=== PATIENT | male | born 1950 | race African-American/Black ===

== ENCOUNTER 2018-07-13 17:46 | Emergency (ER) | payer MEDICARE, OTHER ==
[~2018-07-13] VITALS: Ht 182.9 cm; Wt 54.0 kg
--- NOTE | 2018-07-13 17:50 | NUR ---
ED Nurse Note: Pt brought in by [facility] from [facility] c/o sorethroat and neck pain x 4days with cough but denies sob. pt airway intact, resp even and unlabored on RA, -n/v/d, will cont monitor. [facility]r EMS report, gtube removed 2 wks ago and hasn't been eating.
--- NOTE | 2018-07-13 18:20 | NUR ---
ED Nurse Note: verified w/ ERMD regarding pt drinking. pt able to tolerate po fluids well. will cont monitor.
[2018-07-13 18:35] VITALS: BP 130/86
[2018-07-13] MEDS ORDERED: Isovue-300 100ml vial INJ PRN (19:15)
--- NOTE | 2018-07-13 19:15 | NUR ---
ED Nurse Note: pt refused nausea medication, states he doesn't have nausea.
--- NOTE | 2018-07-13 19:30 | NUR ---
ED Nurse Note: pt reports pain, ERMD notified.
[2018-07-13 19:42] LABS: BASOPHILS % (AUTO) 1.2 % (0.0-2.0); EOSINOPHILS % (AUTO) 0.1 % (0.0-3.0); HEMATOCRIT 47.5 % (42.0-52.0); HEMOGLOBIN 14.9 G/DL (14.2-18.0); LYMPHOCYTES % (AUTO) 13.8 % (20.0-45.0); MEAN CORPUSCULAR VOLUME 84 FL (80-99); MONOCYTES % (AUTO) 6.6 % (1.0-10.0); NEUTROPHILS % (AUTO) 78.4 % (45.0-75.0); PLATELET COUNT 246 K/UL (150-450); RED BLOOD COUNT 5.68 M/UL (4.70-6.10); RED CELL DISTRIBUTION WIDTH 13.9 % (11.6-14.8)
[2018-07-13] MEDS ORDERED: traMADol 50mg tab ORAL ONE (19:45)
[2018-07-13 20:06] LABS: ANION GAP 11 mmol/L (5-15); BLOOD UREA NITROGEN 16 mg/dL (7-18); CALCIUM 9.4 MG/DL (8.5-10.1); CARBON DIOXIDE 28 MMOL/L (21-32); CHLORIDE 106 MMOL/L (98-107); POTASSIUM 3.6 MMOL/L (3.5-5.1); SODIUM 145 MMOL/L (136-145)
[2018-07-13 20:11] LABS: ALANINE AMINOTRANSFERASE 19 U/L (12-78); ALBUMIN/GLOBULIN RATIO 0.7 (1.0-2.7); ALKALINE PHOSPHATASE 112 U/L (46-116); ASPARTATE AMINO TRANSFERASE 21 U/L (15-37); BILIRUBIN,TOTAL 0.6 MG/DL (0.2-1.0)
[2018-07-13 20:35] VITALS: BP 129/82
--- NOTE | 2018-07-13 22:38 | NUR ---
ED Nurse Note: pt reports pain, pt states ultram helped but starting to have pain again, ERMD notified.
--- NOTE | 2018-07-13 22:40 | NUR ---
ED Nurse Note: report given to Farhana nurse at the [facility] for d/c instruction and aftercare instruction. nurse verbalized understanding.
[2018-07-13] MEDS ORDERED: RANITIDINE HCL150 MG ORAL (22:56)
[2018-07-13] MEDS ORDERED: Morphine Sulfate 4mg/ml Inj (IV USE ONLY) IVP ONE (23:00)
[2018-07-13 23:13] VITALS: BP 147/98
--- NOTE | 2018-07-13 23:14 | NUR ---
ED Nurse Note: pt cleared to be d/c per ER provider, pt discharge/aftercare instruction provided w/ prescription, pt education done via discussion and handout, pt advised to follow up with pcp or return to ed if sx worsen or new sx develop, pt verbalized understanding and agrees with plan, paperwork given to amb personnel and report given, all belongings left w/ pt, vss, resp even and unlabored on RA, iv d/c and dressing applied, wristband removed.
--- NOTE | 2018-07-13 23:21 | Emergency Room Report ---
History of Present Illness General Chief Complaint: Sore Throat Source: Patient, EMS Present Illness HPI 68-year-old male presents ED complaining of sore throat. Coming from long term facility. Pain is sharp, 7 out of 10, nonradiating. Started 3 days ago. Denies fevers or chills. Denies cough. Denies ear ache. No other aggravating relieving factors. No other associated symptoms Allergies: Coded Allergies: IBUPROFEN (Verified Allergy, Unknown, 07/13/18) PENICILLINS (Verified Allergy, Unknown, 07/13/18) Patient History Past Medical History: HTN Past Surgical History: none Pertinent Family History: none Social History: Denies: smoking, alcohol use, drug use Immunizations: UTD Reviewed Nursing Documentation: PMH: Agreed; PSxH: Agreed Nursing Documentation-PMH Past Medical History: No History, Except For Hx Hypertension: Yes Review of Systems All Other Systems: negative except mentioned in HPI Physical Exam Vital Signs Date Time Temp Pulse Resp B/P (MAP) Pulse Ox O2 Delivery O2 Flow Rate FiO2 07/13/18 17:45 97.9 69 16 133/97 100 Room Air Sp02 EP Interpretation: reviewed, normal General Appearance: no apparent distress, alert, GCS 15, non-toxic Head: normocephalic, atraumatic Eyes: bilateral eye normal inspection, bilateral eye PERRL ENT: hearing grossly normal, normal pharynx, no angioedema, normal voice, TMs + canals normal Neck: full range of motion, supple/symm/no masses Respiratory: chest non-tender, lungs clear, normal breath sounds, speaking full sentences Cardiovascular #1: regular rate, rhythm, no edema Cardiovascular #2: 2+ carotid (R), 2+ carotid (L), 2+ radial (R), 2+ radial (L) , 2+ dorsalis pedis (R), 2+ dorsalis pedis (L) Gastrointestinal: normal bowel sounds, non tender, soft, non-distended, no guarding, no rebound Rectal: deferred Genitourinary: normal inspection, no CVA tenderness Musculoskeletal: back normal, gait/station normal, normal range of motion, non- tender Neurologic: alert, oriented x3, responsive, motor strength/tone normal, sensory intact, speech normal Psychiatric: judgement/insight normal, memory normal, mood/affect normal, no suicidal/homicidal ideation Reflexes: 3+ bicep (R), 3+ bicep (L), 3+ tricep (R), 3+ tricep (L), 3+ knee (R) , 3+ knee (L) Skin: normal color, no rash, warm/dry, well hydrated Lymphatic: no adenopathy Medical Decision Making Diagnostic Impression: Primary Impression: GERD (gastroesophageal reflux disease) Qualified Codes: K21.9 - Gastro-esophageal reflux disease without esophagitis Additional Impression: Throat pain ER Course Hospital Course 68 yo M presents with throat pain Differential diagnosis includes- esphagitis, pharyngits, GERD Clinical course Patient placed on stretcher. After initial history and physical I ordered labs , IV fluids, pain medications and CT scan Labs - no leukocytosis, electrolytes ok, CT neck and CT chest show no acute findings however there are findings consistent with acid reflux. Discussed findings with patient. Patient is asking for surgery. I explained there is no emergent indication for surgery at this time. We will discharge back to SNF with CT findings. given pepcid here I feel this is a highly complex case requiring extensive working including EKG/ Rhythm strip, Xray/CT/US, Blood/urine lab work, repeat exams while in ED, and administration of strong opiates/narcotics for pain control, admission to hospital or close patient follow up. Diagnosis - GERD, throat pain Stable and discharged to SNF with Rx Zantac. Followup with PMD. Return to ED if symptoms recur or worsen Labs Test 07/13/18 19:20 White Blood Count 7.0 K/UL (4.8-10.8) Red Blood Count 5.68 M/UL (4.70-6.10) Hemoglobin 14.9 G/DL (14.2-18.0) Hematocrit 47.5 % (42.0-52.0) Mean Corpuscular Volume 84 FL (80-99) Mean Corpuscular Hemoglobin 26.2 PG (27.0-31.0) Mean Corpuscular Hemoglobin Concent 31.3 G/DL (32.0-36.0) Red Cell Distribution Width 13.9 % (11.6-14.8) Platelet Count 246 K/UL (150-450) Mean Platelet Volume 5.5 FL (6.5-10.1) Neutrophils (%) (Auto) 78.4 % (45.0-75.0) Lymphocytes (%) (Auto) 13.8 % (20.0-45.0) Monocytes (%) (Auto) 6.6 % (1.0-10.0) Eosinophils (%) (Auto) 0.1 % (0.0-3.0) Basophils (%) (Auto) 1.2 % (0.0-2.0) Sodium Level 145 MMOL/L (136-145) Potassium Level 3.6 MMOL/L (3.5-5.1) Chloride Level 106 MMOL/L (98-107) Carbon Dioxide Level 28 MMOL/L (21-32) Anion Gap 11 mmol/L (5-15) Blood Urea Nitrogen 16 mg/dL (7-18) Creatinine 1.0 MG/DL (0.55-1.30) Estimat Glomerular Filtration Rate > 60 mL/min (>60) Glucose Level 85 MG/DL (74-106) Calcium Level 9.4 MG/DL (8.5-10.1) Total Bilirubin 0.6 MG/DL (0.2-1.0) Aspartate Amino Transf (AST/SGOT) 21 U/L (15-37) Alanine Aminotransferase (ALT/SGPT) 19 U/L (12-78) Alkaline Phosphatase 112 U/L (46-116) Total Protein 7.5 G/DL (6.4-8.2) Albumin 3.0 G/DL (3.4-5.0) Globulin 4.5 g/dL Albumin/Globulin Ratio 0.7 (1.0-2.7) CT/MRI/US Diagnostic Results CT/MRI/US Diagnostic Results #1: Imaging Test Ordered: CT chest Impression No pulmonary embolism. No aortic aneurysm or dissection. Aorta is tortuous. Near occlusive debris/secretions in the bronchial of right lower lobe, best seen on series 9 images 26-34, indicating aspiration. 4 mm groundglass opacity of left lower lobe, series 9 image 23. Subtle patchy groundglass airspace opacities predominantly in right middle lobe and lower lobe, best seen on sagittal view, may suggest early pneumonia. The esophagus is mildly dilated, fluid-filled, all the way up to thoracic inlet , suggest severe reflux. Rib spur arising from inner posterior aspect of right fifth rib. Calcified right hilar and mediastinal lymph nodes. Bilateral renal cysts. Moderate degenerative disc disease. Osteopenia. Small scarring of bilateral lung bases. CT/MRI/US Diagnostic Results #2: Imaging Test Ordered: CT neck Impression Findings: air-fluid level noted in the esophagus down to the level of the surgical anastomoses. Degenerative changes noted of the cervical spine There is a sebaceous cyst measuring 2.9 x 1.8 cm posterior neck at the level C 3 -4. No evidence for enlargement tonsillar pillars. Unremarkable appearance to the left and right parotid gland. Left and right submandibular gland are within normal limits. Impression: air-fluid level in the esophagus down to the level of the surgical anastomosis.. Findings consistent with a sebaceous cyst posteriorly in the neck. Mild degenerative changes the cervical spine. Last Vital Signs Date Time Temp Pulse Resp B/P (MAP) Pulse Ox O2 Delivery O2 Flow Rate FiO2 07/13/18 23:13 98.4 88 16 147/98 95 Room Air Status: improved Disposition: ER SNF Condition: Stable Scripts Ranitidine Hcl* (ZANTAC*) 150 Mg Tablet 150 MG ORAL TWICE A DAY, #30 TAB Prov: Lawrence Galindo MD 07/13/18 Referrals: NON PHYSICIAN (PCP) Patient Instructions: Gastroesophageal Reflux Disease, Adult Lawrence Galindo MD Jul 13, 2018 23:21
--- NOTE | 2018-07-14 10:51 | Diagnostic Imaging Report ---
Clinical Indication: Chest pain, dysphagia Technique: IV administration nonionic contrast. Spiral acquisition obtained through the chest. Multiplanar reconstructions generated. Total dose length product 1321 mGycm. CTDIvol(s) 17, 20 mGy. Dose reduction achieved using automated exposure control Comparison: none Findings: There is generalized hyperinflation, as well as at or bullae. A focal calcification is seen posteriorly in the right upper pleural space, probably arising from the adjacent rib. A granulomatous calcification is seen in the posterior right upper lobe. Some atelectasis is seen in the posterior left upper lobe. Faint groundglass opacities are seen in the right middle and lower lobe. Areas of atelectasis and/or scarring are seen at both lung bases. No definite infiltrates, masses, effusions demonstrated. The exam was not protocoled for evaluation of pulmonary embolus, but the pulmonary arteries are well opacified and no evidence of pulmonary embolism is demonstrated. The esophagus is filled with fluid and debris, mildly distended. There is evidence of fairly extensive postsurgical changes of the stomach and proximal small bowel, incompletely included and not well visualized. Some secretions are seen in the right lower lobe lateral segmental bronchus. The left hemidiaphragm is elevated. The aorta is markedly tortuous. The heart size is normal. There is evidence of left ventricular muscular hypertrophy. The ascending thoracic aorta is ectatic but not frankly aneurysmal, measuring 4 cm in diameter. No mediastinal or hilar mass or adenopathy. Included portions of the thyroid are unremarkable. Granulomatous calcifications are seen and multiple mediastinal lymph nodes and a right hilar node. No axillary or chest wall mass or adenopathy demonstrated. The bones demonstrate degenerative spondylosis changes. The included abdominal viscera demonstrate elevated left hemidiaphragm. As mentioned above, the gastroesophageal anatomy is not well delineated. Granulomatous calcifications are seen within the spleen. The liver demonstrates numerous subcentimeter low-attenuation lesions which are too small to characterize. The left kidney demonstrates a large cyst coming off of the upper pole and a second smaller cyst coming off of the anterior interpolar region. A small cyst is also seen in the right kidney. Subcentimeter low-attenuation lesions are also seen in the right kidney. Impression: Fluid-filled esophagus, extending to the gastroesophageal junction findings could be on the basis of distal esophageal obstructive lesion versus severe reflux. Note that the gastroesophageal anatomy is poorly delineated although there is evidence of prior gastric and proximal small bowel surgery. Correlate with surgical history, consider endoscopy and/or esophagitis., consider follow-up with abdomen CT with oral contrast if clinically indicated Evidence of COPD, with hyperinflation and bullous changes Groundglass opacities within the right middle and lower lobes, could represent pulmonary edema or early inflammatory change Evidence old granulomatous disease within the right lung and pulmonary hilum and spleen Tortuous ectatic but not frankly aneurysmal aorta Minimal secretions within right lower lobe lateral segmental bronchus Other findings as noted, including bilateral renal cysts, subcentimeter low-attenuation liver lesions which are too small to characterize-most likely simple cysts or bile hammertoe is and no further follow-up necessary, degenerative spondylosis changes This agrees with the preliminary interpretation provided overnight by [facility], with minor variation. The CT scanner at [facility] is accredited by the [employer] and the scans are performed using protocols designed to limit radiation exposure to as low as reasonably achievable to attain images of sufficient resolution adequate for diagnostic evaluation.
--- NOTE | 2018-07-14 10:54 | Diagnostic Imaging Report ---
Indication: Sore throat and neck pain x4 days Technique: IV administration nonionic contrast. Spiral acquisitions obtained through the neck. Multiplanar reconstructions were generated. Total dose length product 1321, 17, 20 mGycm. CTDIvol(s) mGy. Dose reduction achieved using automated exposure control Comparison: none Findings: The proximal esophagus is dilated, filled with gas and debris and fluid. The upper aerodigestive tract is unremarkable. No evidence of tonsillar swelling or lymph node enlargement. No evidence of retropharyngeal or parapharyngeal abscess. The salivary glands are unremarkable. No cervical mass or adenopathy. The bilateral parapharyngeal spaces are clear. There is evidence of multiple prior dental extractions. There is sinus disease within the left maxillary sinus. A subcutaneous cyst is seen in the midline nuchal region, measuring 3.6 cm long axis dimension. 4 mm low-attenuation lesion is seen in the left thyroid lobe. There are degenerative changes of the cervical spine The chest, lungs and upper mediastinum are described on separate chest CT report Impression: Distention of the esophagus. This is nonspecific, could indicate downstream obstructive process or reflux. No findings to suggest etiology of stated clinical history of trauma pain 3.6 cm subcutaneous midline nuchal region cystic lesion. Correlate with clinical findings 4 mm left lobe thyroid nodule. No further follow-up necessary Left maxillary sinus disease, degenerative spondylosis incidentally noted This agrees with the preliminary interpretation provided overnight by [facility]. The CT scanner at [facility] is accredited by the [employer] and the scans are performed using protocols designed to limit radiation exposure to as low as reasonably achievable to attain images of sufficient resolution adequate for diagnostic evaluation.
== END 2018-07-13 23:45 ==
LOC: EDBD 17:46 → EMR 18:05
DX: K21.9 Gastro-esophageal reflux disease without esophagitis (principal); J02.9 Acute pharyngitis, unspecified; I10 Essential (primary) hypertension; Z88.0 Allergy status to penicillin; Z88.6 Allergy status to analgesic agent
CPT/HCPCS: 36415; 70491; 71260; 80053; 85025; 96374; 96375; 99284; J2270; Q9967; S0028; J2405